=== PATIENT | male | born 1990 | race Hispanic/Latino ===

== ENCOUNTER → 2022-03-01 | Outpatient (CLI) | payer SELFPAY, OTHER | LOC: MRI 14:10 | PROVIDERS: ATTEND Family Medicine | DX: M25.511 Pain in right shoulder (principal); S46.911A Strain of unspecified muscle, fascia and tendon at shoulder and upper arm level, right arm, initial encounter; Z04.2 Encounter for examination and observation following work accident; V89.2XXA Person injured in unspecified motor-vehicle accident, traffic, initial encounter ==